=== PATIENT | male | born 2000 | race Caucasian/White ===

== ENCOUNTER 2021-01-30 15:44 | Emergency (ER) | payer OTHER, SELFPAY ==
[2021-01-30 15:54] VITALS: BP 119/72; PULSE 71; RESP 18; TEMP 36.7; O2SAT 100
--- NOTE | 2021-01-30 16:10 | ED.WOUNDLAC ---
HPI - Wound/Laceration General Chief Complaint: Wound/Laceration Stated Complaint: lt pinkie finger History of Present Illness HPI narrative: This is a 20 year old that comes in complaining of nausea and being worried about passing out due to seeing his finger and blood. Patient yesterday fell off of a scooter and his left 5th finger was scraped it had a flap on it but today when they removed the band aid off of the finger the flap tore off. Patient states he is going to need stitches. Related Data Home Medications Medication Instructions Recorded Confirmed No Home Medications 01/30/21 01/30/21 Allergies Allergy/AdvReac Type Severity Reaction Status Date / Time No Known Allergies Allergy Verified 01/30/21 15:54 Review of Systems Review of Systems: Narrative: CONSTITUTIONAL: Denies fever, chills, or sweats. EYES: Denies visual changes, redness, or discharge. ENT: Denies rhinorrhea, congestion, sore throat, or otalgia. CARDIOVASCULAR:Denies chest pain, palpitations, or edema. RESPIRATORY: Denies cough or dyspnea. GASTROINTESTINAL: Denies abdominal pain, nausea, vomiting, or diarrhea. GENITOURINARY: Denies dysuria or hematuria. SKIN: Report rash or itching. MUSCULOSKELETAL:Denies back pain, left leg and joint pain, or myalgia. NEUROLOGIC: Denies headache, numbness, or weakness. PSYCHIATRIC:Denies anxiety or depression PMFSH Comments At time as signature, I have reviewed and agree with nursing past medical, social, surgical and family history. Please see nursing chart for further information. There is no relevant family history pertinent to the presenting complaint. Exam Narrative: Exam Narrative: GENERAL:Well-appearing, well-nourished, and in no acute distress. HEAD:Normocephalic, atraumatic. EYES: PERRLA and EOMI. ENT: Nares clear, no rhinorrhea or epistaxis. Mucous membranes moist. NECK: Supple. CHEST: Clear to auscultation. No respiratory distress. HEART: Regular rate and rhythm. No murmur heard. Normal peripheral pulses. ABDOMEN: Soft, nontender, nondistended, normal active bowel sounds. EXTREMITIES: Normal range of motion. Left 5th finger slight edema of metacarpal has a superficial abrasion of skin where some of it missing. SKIN: Warm, dry, no rash. NEURO: No focal deficits. Alert and oriented x3. 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 Vital Signs Vital signs: Vital Signs Temperature 98.1 F 01/30/21 15:54 Pulse Rate 71 01/30/21 15:54 Respiratory Rate 18 01/30/21 15:54 Blood Pressure 119/72 01/30/21 15:54 Pulse Oximetry 100 01/30/21 15:54 Temperature 98.1 F 01/30/21 15:54 Pulse Rate 71 01/30/21 15:54 Respiratory Rate 18 01/30/21 15:54 Blood Pressure 119/72 01/30/21 15:54 Pulse Oximetry 100 01/30/21 15:54 MDM - Wound/Laceration Differential Diagnosis Differential diagnosis: Likely laceration, abscess, abrasion and avulsion of skin Critical Care Time Critical Care Time Critical Care Time: No Discharge Plan Discharge Clinical Impression: Abrasion, Skin tear Patient Disposition: Home, Self-Care Condition: Stable Instructions: Antibiotic Form, Abrasion (ED), Skin Tear (ED) Additional Instructions: keep area clean and dry. you may apply triple antibiotic ointment You should keep area covered it it makes you nauseated. You should also keep open to air for a few hours each days. Prescriptions: No Action No Home Medications RF: 0 Follow-up/Referrals: UNKNOWN,DOCTOR [Primary Care Provider] - Time of Disposition: 16:15
== END 2021-01-30 16:23 | disposition home or self-care (01) ==
PROVIDERS: Emergency Provider Nurse Practitioner Family
DX: S60.417A Abrasion of left little finger, initial encounter (principal); S61.217A Laceration without foreign body of left little finger without damage to nail, initial encounter; W05.1XXA Fall from non-moving nonmotorized scooter, initial encounter
CPT/HCPCS: 99211; 99212; G0463